=== PATIENT | female | born 1995 | race Caucasian/White ===

== ENCOUNTER 2019-12-31 21:43 | Emergency (ER) | payer MEDICAID ==
[~2019-12-31] VITALS: Ht 177.8 cm; Wt 104.9 kg
[~2019-12-31 21:43] MED LIST: METH10TA6 PO; METH5TAB82 PO; PROP40TA PO
--- NOTE | 2019-12-31 22:15 | NUR ---
PT REPORTS HEAVY VAGINAL BLEEDING WITH CLOTS SINCE 12/28/19, HAS IRREGULAR MENSTRUAL BLEEDING SINCE JULY 2019 AFTER MISCARRIAGE AND D&C. PLACED ON VITALS MONITORS, FALL PRECAUTIONS IN PLACE. CALL LIGHT WITHIN REACH.
--- NOTE | 2019-12-31 22:41 | NUR ---
PT TRANSPORTED TO ULTRASOUND.
[2019-12-31 22:46] LABS: BASOPHILS # (AUTO) 0.07 x10^3/uL (0-0.1); BASOPHILS % (AUTO) 1 % (0-1); EOSINOPHILS % (AUTO) 1 % (1-7); LYMPHOCYTES # (AUTO) 2.64 x10^3/uL (1-3.4); LYMPHOCYTES % (AUTO) 30 % (22-44); MD NO; MEAN CORPUSCULAR HEMOGLOBIN 30.2 pg (27.0-34.8); MEAN CORPUSCULAR HGB CONC 33.6 g/dL (32.4-35.8); MEAN CORPUSCULAR VOLUME 89.8 fL (80-100); MEAN PLATELET VOLUME 8.4 fL (7.4-10.4); MONOCYTES # (AUTO) 0.43 x10^3/uL (0.2-0.8); MONOCYTES % (AUTO) 5 % (2-9); NEUTROPHILS # (AUTO) 5.67 x10^3/uL (1.8-6.8); NEUTROPHILS % (AUTO) 64 % (42-75); PLATELET COUNT 291 x10^3/uL (130-400); RED CELL DISTRIBUTION WIDTH 15.9 % (9.6-15.2)
--- NOTE | 2019-12-31 22:56 | NUR ---
REPORT FROM FLOR RN
[2019-12-31 22:57] LABS: MICROSCOPIC AUTO
[2019-12-31 22:57] LABS: ALANINE AMINOTRANSFERASE 17 U/L (12-78); ALBUMIN 3.5 g/dL (3.4-5.0); ANION GAP 8 mmol/L (5-15); CALCIUM 8.3 mg/dL (8.5-10.1); CHLORIDE 111 mmol/L (98-107); CREATININE 0.83 mg/dL (0.55-1.02)
[2019-12-31 23:01] LABS: ALKALINE PHOSPHATASE 72 U/L (45-117); BILIRUBIN,TOTAL 0.2 mg/dL (0.2-1.0); TOTAL PROTEIN 6.9 g/dL (6.4-8.2)
[2020-01-01 00:25] VITALS: BP 104/62
== END 2020-01-01 00:27 | disposition home or self-care (01) ==
LOC: ED 22:13
DX: N93.8 Other specified abnormal uterine and vaginal bleeding (principal); N92.0 Excessive and frequent menstruation with regular cycle; J45.909 Unspecified asthma, uncomplicated
CPT/HCPCS: 36415; 76830; 80053; 81001; 84702; 85025; 99284